=== PATIENT | male | born 1945 | race Caucasian/White ===

== ENCOUNTER 2019-01-15 15:46 | Inpatient (IN) | payer MEDICARE, MEDICAID ==
[~2019-01-15] VITALS: Ht 167.6 cm; Wt 75.0 kg
[2019-01-15 15:46] VITALS: BP 154/82
[2019-01-15 16:27] LABS: HEMATOCRIT 43.7 % (39.0-50.0); HEMOGLOBIN 14.5 g/dl (14.0-18.0); IMMATURE GRANULOCYTES 0.3 % (0.0-5.0); MEAN CORPUSCULAR HGB 30.9 pG CALC (26.0-32.0); MEAN CORPUSCULAR HGB CONC 33.2 g/L CALC (32.0-36.0); NEUT# 8.56 thou/uL (1.82-7.42); RED BLOOD COUNT 4.7 mill/uL (4.70-6.10); RED CELL DISTRI WIDTH 12.7 % (11.5-15.5)
[2019-01-15 16:33] LABS: ALBUMIN 4.9 g/dL (3.2-5.0); ALKALINE PHOSPHATASE 99 u/l (38-126); ANION GAP 14 (6-22 (CALC)); BILIRUBIN, TOTAL 0.5 mg/dL (0.0-1.4); BUN 27 mg/dL (8-23); BUN/CREATININE RATIO 31 (12-20 (CALC)); CARBON DIOXIDE 27 mmol/l (22-30); CHLORIDE 108 mmol/l (95-108); CREATININE 0.9 mg/dL (0.7-1.3); GFR > 60 ML/MIN (>=60 (CALC)); GFR FOR AFR.AMER. > 60 ML/MIN (>=60 (CALC)); LIPASE 86 u/l (23-300); POTASSIUM 4.2 mmol/l (3.5-5.1); SGOT/AST 28 u/l (19-48); SODIUM 144 mmol/l (137-146)
[2019-01-15 16:46] LABS: URINE BILIRUBIN - DIPSTICK NEGATIVE (NEGATIVE); URINE BLOOD DIPSTICK NEGATIVE (NEGATIVE); URINE COLOR YELLOW; URINE GLUCOSE - DIPSTICK NEGATIVE (NEGATIVE); URINE KETONE NEGATIVE (NEGATIVE); URINE LEUK ESTERASE NEGATIVE (NEGATIVE); URINE NITRITE - DIPSTICK NEGATIVE (Negative); URINE PH 7.5 (4.5-8.0); URINE PROTEIN - DIPSTICK NEGATIVE (NEG-TRACE); URINE SPECIFIC GRAVITY 1.015; URINE UROBILINOGEN - DIPSTICK 0.2 E.U./dL (0.2)
[2019-01-15] MEDS ORDERED: ZETIA10 MG PO (17:12)
[2019-01-15] MEDS ORDERED: MIRTAZAPINE15 MG PO (17:14)
[2019-01-15] MEDS ORDERED: MEMANTINE HYDRO28 MG PO (17:14)
[2019-01-15] MEDS ORDERED: EXELON9.5 MG/24 TOP (17:17)
[2019-01-15] MEDS ORDERED: ZYPITAMAG4 MG PO (17:20)
[2019-01-15] MEDS ORDERED: CREON1 CAP PO (17:21)
== END 2019-01-15 19:17 | disposition left against medical advice (07) | DRG 390 ==
LOC: ED 15:46 → ED-I 17:35 → ED 17:53 → MS2 17:54
PROVIDERS: Emergency Medicine; ADMIT Internal Medicine; ATTEND Internal Medicine
DX: K56.609 Unspecified intestinal obstruction, unspecified as to partial versus complete obstruction (principal)
CPT/HCPCS: Q9967

== ENCOUNTER 2021-04-06 07:52 | Day surgery (SDC) | payer MEDICARE, MEDICAID ==
[~2021-04-06] VITALS: Ht 160 cm; Wt 60.8 kg
[~2021-04-06 07:52] MED LIST: CREON1 CAP PO; EXELON9.5 MG/24 TOP; LIVALO1 M1 PO; MEMANTINE HYDRO28 MG PO; MIRTAZAPINE15 MG PO; ZETIA10 MG PO; ZYPITAMAG4 MG PO; [UNRECOGNIZED DRUG - OTHER] TD
[2021-04-06 10:14] VITALS: BP 136/77
== END 2021-04-06 10:35 | disposition home or self-care (01) ==
LOC: ENDO 07:52 → ORM 11:35 → ENDO 11:35 → ORM 12:00
PROVIDERS: ATTEND Surgery
PROC: 0DBP8ZX Excision of Rectum, Via Natural or Artificial Opening Endoscopic, Diagnostic (ICD-10-PCS; principal; 2021-04-06)
DX: Z12.11 Encounter for screening for malignant neoplasm of colon (principal); D12.8 Benign neoplasm of rectum; K64.8 Other hemorrhoids; E78.5 Hyperlipidemia, unspecified; Z86.010 Personal history of colon polyps